=== PATIENT | male | born 1985 | race Caucasian/White ===

== ENCOUNTER 2016-02-28 11:28 | Emergency (ER) | payer SELFPAY ==
[2016-02-28 11:38] VITALS: BP 137/74; PULSE 70; TEMP 97.6; BMI 24.8
--- NOTE | 2016-02-28 11:45 | EDPRACDOC ---
- General Information Chief Complaint: Eye Problems Stated Complaint: PROBLEMS WITH LT EYE WITH DRAINAGE Time Seen by Provider: 02/28/16 11:41 Information Source: Patient Mode Of Arrival: Car Home Medications: Home Medications Gentamicin 0.3% Ophth Soln 2 drops OS TID 7 Days 02/28/16 Allergies/Adverse Reactions: Allergies Allergy/AdvReac Type Severity Reaction Status Date / Time No Known Allergies Allergy Verified 02/28/16 11:40 - History of Present Illness Onset: 2-3 days HPI: PT C/O LEFT EYE REDNESS AND YELLOW DISCHARGE FOR 2-3 DAYS. PT STATES NO VISION CHANGES BUT DOES ITCH MILDLY. Eye Symptoms: Reports: Itching, Discharge, Redness Symptoms: Moderate Relevent History: Reports: None Rhinorrhea: Reports: None Last Tetanus: No Associated Signs and Symptoms:: Reports: None ED Past Medical History - History Reviewed Yes Nurses notes reviewed and agree except as marked Travel Outside of [place] in the Last 3 Months?: No No Past Medical History: Yes Patient has no past medical history - Patient Medical History Psychological History: Denies: Depression - Social Medical History Smoking Status: Never smoker ETOH: None Substance Abuse: None Lives With: Other Lives In: Home EDM Review of Systems - Review of Systems ROS Negative Except as Marked: Yes All systems reviewed and were negative except as marked Constitutional: No Symptoms Reported. negative: Fever, Chills, Weakness, Fatigue, Loss of Appetite Eyes: Discharge, Redness (LT). negative: Blurred Vision, Double Vision, Light Sensitive, Pain, Photophobia Ears: No Symptoms Reported. negative: Pain, Hearing Loss, Drainage, Ear Pulling Throat: No Symptoms Reported. negative: Pain, Swelling Nose: No Symptoms Reported. negative: Congestion, Bleeding, Discharge, Injection, Swelling, Deformity, Ecchymosis, Tender, Abrasion, Laceration Mouth: No Symptoms Reported. negative: Pain, Drooling Respiratory: No Symptoms Reported. negative: Cough, Brassy Cough, Barky Cough, Shortness of Breath, Wheezing, Hemoptysis Cardiovascular: No Symptoms Reported. negative: Chest Pain, Palpitations, Syncope, Edema, Orthopnea, PND, Skin Mottling, Cyanosis Gastrointestinal: No Symptoms Reported. negative: Pain, Constipation, Nausea, Vomiting, Diarrhea, Melena, Formula Intolerance Genitourinary: No Symptoms Reported. negative: Dysuria, Hematuria, Frequency, Discharge, Bleeding, Testicular Pain, Neurological: No Symptoms Reported. negative: Headache, Dizziness, Seizure, Numbness, Weakness, Speech Difficulty, Gait Difficulty Musculoskeletal: No Symptoms Reported. negative: Neck, Chestwall, Ribs, Back, Shoulder, Arm, Elbow, Forearm, Wrist, Hand, Pelvis, Hip, Femur, Knee, Leg, Ankle , Foot Integumentary: No Symptoms Reported. negative: Itching, Rash, Bruising, Wound Allergic/Immunologic: No Symptoms Reported. negative: Hives, Itching Hematologic: No Symptoms Reported. negative: Lymphadenopathy, Easy Bruising, Easy Bleeding Endocrine: No Symptoms Reported. negative: Weight Gain, Weight Loss Psychiatric: No Symptoms Reported. negative: Anxiety, Depression, Hallucinations, Insomnia, Suicidal - Physical Exam Constitutional: No apparent distress, Alert (Awake) Oriented to: Time, Person, Place Last recorded Vital Signs: Last Vital Signs Temp 97.6 F 02/28/16 11:36 Pulse 70 02/28/16 11:36 Resp 18 02/28/16 11:36 BP 137/74 02/28/16 11:36 Pulse Ox 98 02/28/16 11:36 Oxygen Pulse Oxygen Saturation 98 O2 Device Oxygen Flow Rate Fraction of Inspired Oxygen ( FIO2) - HEENT Head: Normal ( normocephalic) Eye Exam: Conjunctival Injection, Other (YELLOW DISCHARGE) Oropharynx: Normal (Pharynx:Moist without exudate,Gums-no swelling) Tympanic Membrane: Normal ENT EAC: Normal TMJ: Normal Nose: No Symptoms Reported (septum midline) Neck: Normal (FROM, trachea at midline) - Respiratory/Cardiovascular Respiratory: Normal - CTA (BBS clear to auscultation without adventitious sounds ) Cardiovascular: Normal (RRR without murmur, gallop or rub) - GI Auscultation: Normal (NABS) Palpation: Normal (Soft,No rebound or guarding, non distended) Tenderness: Non tender Bobo's Sign: Negative - Musculoskeletal Back: Normal (Non-Tender) Extremities: Normal (Normal tone, Pulses 2+ No cyanosis or edema, FROM) - Integumentary Skin: Normal, Warm, Dry Lymphatics: Normal (no adenopathy) - Neurologic Memory Impaired: Normal Motor Function: Normal (Normal tone, Pulses 2+ No cyanosis or edema, FROM) Cranial Nerve: Normal (CN II-X11 intact sensation, strength 5/5) Cerebellar: Normal Mood Description: Normal Perception: Normal ED Eye Problem Exam Eye Exam: right eye: normal inspection, left eye: conjunctival inflammation Eye Discharge: Yellow - Differential Diagnosis Bacterial Conjunctivitis Decision Time to Discharge: 11:47 - Departure Disposition: Home Condition: Stable Final Diagnosis: Conjunctivitis Instructions: Conjunctivitis (ED) Education/Counseling Given To: Patient Education/Counseling Given Regarding: Diagnosis, Treatment, Prognosis, Follow Up Referrals: None,No Provider [Primary Care Provider] - One Week Prescriptions: Gentamicin 0.3% Ophth Soln 2 drops OS TID 7 Days
== END 2016-02-28 11:57 | disposition home or self-care (01) ==
LOC: EDMC 11:28
DX: H10.9 Unspecified conjunctivitis (principal)
CPT/HCPCS: 99282